=== PATIENT | female | born 1965 | race Caucasian/White ===

== ENCOUNTER 2021-04-20 10:58 | Emergency (ER) | payer SELFPAY ==
[2021-04-20] MEDS ORDERED: predniSONE 20 MG TAB ONE (11:17)
[2021-04-20] MEDS ORDERED: Acetaminophen 325 MG TAB ONE (11:17)
== END 2021-04-20 12:25 | disposition home or self-care (01) ==
LOC: NAV ERS 10:58
DX: T63.441A Toxic effect of venom of bees, accidental (unintentional), initial encounter (principal); I10 Essential (primary) hypertension; Z79.899 Other long term (current) drug therapy
CPT/HCPCS: 94760; J7512

== ENCOUNTER 2022-07-22 15:55 | Emergency (ER) | payer SELFPAY ==
[2022-07-22] MEDS ORDERED: Lidocaine 1% (PF) 30 ML VIAL ONE (16:21)
[2022-07-22] MEDS ORDERED: Bacitracin 1 PK ONE (16:45)
== END 2022-07-22 17:09 | disposition home or self-care (01) ==
LOC: NAV ERS 15:55
DX: S61.211A Laceration without foreign body of left index finger without damage to nail, initial encounter (principal); I10 Essential (primary) hypertension; Z79.899 Other long term (current) drug therapy; W26.0XXA Contact with knife, initial encounter
CPT/HCPCS: 12001; J2001

== ENCOUNTER 2024-01-20 14:13 | Emergency (ER) | payer OTHER, SELFPAY ==
[2024-01-20] MEDS ORDERED: Lidocaine 1% (PF) 30 ML VIAL ONE (14:32)
[2024-01-20] MEDS ORDERED: Bacitracin 1 PK ONE (15:31)
== END 2024-01-20 15:38 | disposition home or self-care (01) ==
LOC: NAV ERS 14:13
DX: S61.211A Laceration without foreign body of left index finger without damage to nail, initial encounter (principal); I10 Essential (primary) hypertension; Z79.899 Other long term (current) drug therapy; W31.1XXA Contact with metalworking machines, initial encounter; Y92.009 Unspecified place in unspecified non-institutional (private) residence as the place of occurrence of the external cause
CPT/HCPCS: 12001; 99282; J2001

== ENCOUNTER 2025-06-23 20:25 | Emergency (ER) | payer OTHER | END 2025-06-23 21:35 | disposition home or self-care (01) | LOC: NAV ERS 20:25 | DX: S62.231A Other displaced fracture of base of first metacarpal bone, right hand, initial encounter for closed fracture (principal); I10 Essential (primary) hypertension; Z79.899 Other long term (current) drug therapy; W19.XXXA Unspecified fall, initial encounter | CPT/HCPCS: 99283 ==